=== PATIENT | male | born 1945 | race Caucasian/White ===

== ENCOUNTER → 2016-06-29 | Day surgery (SDC) | payer MEDICARE, BC ==
[~2016-06-29] MED LIST: ALEVE220 M1 PO; AMANTADINE HCL100 MG PO; ARICEPT PO; ASPIRIN PO; CARBIDOPA-LEVO1 TA1 PO; GLUCOSAMINE CHO1 CA1 PO; INDERAL PO; LO-DOSE ASPIRIN81 M1 PO; MAG-OXIDE400 MG PO; MAGNESIUM400 MG PO; METOPROLOL SUCC25 MG PO; MIRALAX17 GM PO; MULTI VITAMIN1 EACH PO; MULTIVITAMIN1 UDCAP PO; MYSOLINE; MYSOLINE250 MG PO; NEUPRO1 EAC1 TD; OMEPRAZOLE20 M1 PO; OXAPROZIN600 MG PO; PRAVASTATIN SOD40 MG PO; PRILOSEC PO; REQUIP XL8 MG PO; REQUIP1 MG PO; RYTARY ER 61.21 EACH PO; TOPROL XL PO; VOLTAREN75 MG PO; ZOCOR PO; [UNRECOGNIZED DRUG - OTHER]
--- NOTE | ~2016-06-29 | OR ---
Unit #: [id number] #: [id number] Patient: ESA PHELPS [id number] [address] [place], [place] [address] [id number] O MR#: [id number] NAME: ESA PHELPS. ROOM: Date of Procedure: 06/29/2016 Admission Date: 06/29/2016 Surgeon: Errol Ang M.D. : 1945 Attending Physician: Errol Ang M.D. Primary Care Physician: Basil Finley M.D. OPERATIVE REPORT PREOPERATIVE DIAGNOSES Colorectal cancer screening in a high-risk patient. The patient has family history of colon cancer in his mother and sister. PROCEDURE PERFORMED Colonoscopy up to cecum with good prep and visualization. POSTOPERATIVE DIAGNOSES Moderate sigmoid and descending colon diverticulosis. Otherwise, normal examination up to cecum. The quality of the prep was good. No polyps were seen. RECOMMENDATIONS Repeat colonoscopy in 5 years. SEDATION USED MAC. DESCRIPTION OF PROCEDURE Following detailed explanation of the potential risks and complications of a colonoscopy, namely perforation, bleeding, and complications related to sedation, the patient was brought to GI lab and laid in the left lateral decubitus position. A digital rectal examination was performed, which was normal. Lubricated tip of the Olympus video colonoscope was inserted through the anus advanced under direct vision. The scope was advanced past rectosigmoid into descending colon. Multiple medium-sized diverticula were seen in this area. The scope tip was then navigated all the way up to cecum with visualization of the ileocecal valve and the appendiceal orifice. Preparation was good with good visualization and photodocumentation was obtained. Successive segments of the colonic mucosa were examined upon withdrawal and appeared unremarkable. There being no polyps, mass lesions, or AVMs. Other than the sigmoid and descending colon diverticulosis, no other abnormalities were noted. The patient did not have any hemorrhoids at anal verge. The scope was then withdrawn and the patient returned to recovery area. He tolerated the procedure without any postprocedure complications. Dictated by... Mireille Cole/rachael Unit #: [id number] #: [id number] Patient: ESA PHELPS TD: 06/29/2016 22:21 JOB #: [id number] CC: Basil Finley M.D. OPERATIVE REPORT Page 1 of 1 X Errol Ang MD PROCEDURE OPERATIVE NOTE
== END | disposition home or self-care (01) ==
LOC: COPS 11:36
DX: Z12.11 Encounter for screening for malignant neoplasm of colon (principal); K57.30 Diverticulosis of large intestine without perforation or abscess without bleeding; N40.0 Benign prostatic hyperplasia without lower urinary tract symptoms; K21.9 Gastro-esophageal reflux disease without esophagitis; I10 Essential (primary) hypertension; Z80.0 Family history of malignant neoplasm of digestive organs; Z87.19 Personal history of other diseases of the digestive system; Z90.89 Acquired absence of other organs; Z88.0 Allergy status to penicillin; Z79.82 Long term (current) use of aspirin; Z79.899 Other long term (current) drug therapy